=== PATIENT | male | born 1945 | race Caucasian/White ===

== ENCOUNTER 2020-04-17 15:57 | Inpatient (IN) ==
[2020-04-17] MEDS ORDERED: Naloxone 0.4 MG/ML INJ IVP PRN (18:20)
[2020-04-17] MEDS: Furosemide 20 MG/2 ML VIAL IVP ONE (18:46)
[2020-04-17 21:51] LABS: Hematocrit 23.6 % (37.5-50.1); Hemoglobin 7.3 g/dL (12.9-16.9)
[2020-04-17] MEDS ORDERED: Perflutren Lipid Microsphere 1.3 ML in 0.9 % Sodium Chloride 8.7 ML IVP PRN (21:58)
[2020-04-17] MEDS ORDERED: Furosemide 40 MG/4 ML VIAL IVP SCH (22:00)
[2020-04-17] MEDS ORDERED: Ipratropium/Albuterol Neb 3 ML IH PRN (22:53)
[2020-04-17] MEDS ORDERED: *HR* Metoprolol 5 MG/5 ML VIAL IVP ONE (23:51)
[2020-04-18] MEDS ORDERED: *HR* Metoprolol 5 MG/5 ML VIAL IVP ONE (01:48)
[2020-04-18] MEDS ORDERED: Furosemide 20 MG/2 ML VIAL IVP ONE (02:00)
[2020-04-18 03:36] LABS: Basophils % 0.1 %; Hematocrit 21.5 % (37.5-50.1); Hemoglobin 6.8 g/dL (12.9-16.9); Immature Granulocytes % 0.8 % (0-4); Lymphocytes # 0.8 K/mcL (0.6-4.6); Lymphocytes % 8.4 %; Mean Corpuscular HGB Conc 31.6 g/dL (31.6-35.5); Mean Corpuscular Hemoglobin 29.3 pg (28.0-33.3); Mean Corpuscular Volume 92.7 fL (83.0-100.0); Monocytes # 0.1 K/mcL (0.0-1.3); Monocytes % 0.7 %; Neutrophils # 8.8 K/mcL (1.6-8.9); Platelet Count 210 K/mcL (140-400); Red Blood Count 2.32 M/mcL (4.19-5.50); Red Cell Distribution Width 14.9 % (11.5-14.5); White Blood Count 9.8 K/mcL (4.3-11.1)
[2020-04-18 03:55] LABS: BUN/Creatinine Ratio 42 (6-26); Blood Urea Nitrogen 36 mg/dL (8-23); Calcium 8.3 mg/dL (8.6-10.3); Carbon Dioxide 20 mEq/L (23-29); Chloride 106 mEq/L (98-107); Glucose 140 mg/dL (70-105); Osmolality,Calculated 291 (280-300); Potassium 3.9 mEq/L (3.5-5.1); Sodium 135 mEq/L (136-145); eGFR For African Americans > 60 (> 60); eGFR For Non-African Americans > 60 (> 60)
[2020-04-18] MEDS ORDERED: 0.9 % Sodium Chloride 250 ML ONE (04:41)
[2020-04-18 05:28] LABS: Magnesium 1.9 mg/dL (1.6-2.6)
[2020-04-18] MEDS ORDERED: Pantoprazole 40 MG VIAL IVP SCH (06:00)
[2020-04-18] MEDS: Furosemide 20 MG/2 ML VIAL IVP ONE (07:43)
[2020-04-18] MEDS: Aspirin Enteric Coated 81 MG Tablet PO SCH (07:43)
[2020-04-18] MEDS: DilTIAZem CD (24hr) 240 MG CAP.ER.24H PO SCH (07:44)
[2020-04-18] MEDS ORDERED: 0.9 % Sodium Chloride 250 ML IVC SCH (08:15)
[2020-04-18] MEDS ORDERED: Pantoprazole 40 MG VIAL IVP ONE (08:23)
[2020-04-18] MEDS ORDERED: Octreotide 50 MCG/ML INJ IVP ONE (08:24)
[2020-04-18] MEDS ORDERED: Pantoprazole 40 MG in 0.9 % Sodium Chloride Mini Bag 100 ML IVC SCH (08:30)
[2020-04-18 09:14] LABS: Hemoglobin 7.3 g/dL (12.9-16.9)
[2020-04-18] MEDS: Octreotide 400 MCG in 0.9 % Sodium Chloride 100 ML IVC SCH ×2 (09:36→20:19)
[2020-04-18 11:33] LABS: Adenovirus Not Detected (Not Detect); Bordetella Pertussis Not Detected (Not Detect); Chlamydophila pneumoniae Not Detected (Not Detect); Coronavirus 229E Not Detected (Not Detect); Coronavirus HKU1 Not Detected (Not Detect); Coronavirus NL63 Not Detected (Not Detect); Coronavirus OC43 Not Detected (Not Detect); Human Metapneumovirus Not Detected (Not Detect); Human Rhinovirus/Enterovirus Not Detected (Not Detect); Influenza A Subtype 2009 H1 Not Detected (Not Detect); Influenza B Not Detected (Not Detect); Mycoplasma pneumoniae Not Detected (Not Detect); Parainfluenza Virus 1 Not Detected (Not Detect); Parainfluenza Virus 2 Not Detected (Not Detect); Parainfluenza Virus 3 Not Detected (Not Detect); Parainfluenza Virus 4 Not Detected (Not Detect); Respiratory Syncytial Virus Not Detected (Not Detect); SARS-CoV-2 Not Detected (Not Detect)
[2020-04-18] MEDS ORDERED: Furosemide 40 MG/4 ML VIAL IVP ONE (11:42)
[2020-04-18] MEDS ORDERED: *HR* Propofol 200 MG/20 ML VIAL IVP ONE ×2 (14:41→15:07)
[2020-04-18] MEDS ORDERED: Lidocaine -MPF 2% 2 ML VIAL ONE ×2 (14:42→15:10)
[2020-04-18] MEDS ORDERED: *HR* FentaNYL (PF) 100 MCG/2 ML VIAL ONE (14:59)
[2020-04-18] MEDS ORDERED: *HR* EPINEPHrine 1 MG/10 ML SYRINGE INTRATRACH PRN (15:27)
[2020-04-18 16:10] LABS: Hematocrit 27.2 % (37.5-50.1); Hemoglobin 8.5 g/dL (12.9-16.9)
[2020-04-18] MEDS: Pantoprazole 40 MG VIAL IVP SCH (17:06)
[2020-04-18] MEDS ORDERED: Ipratropium Neb 0.5 MG NEBULIZER IH PRN (18:30)
[2020-04-18] MEDS ORDERED: Levalbuterol Neb 0.63 MG/3 ML IH PRN (18:30)
[2020-04-19] MEDS: Octreotide 400 MCG in 0.9 % Sodium Chloride 100 ML IVC SCH (04:58)
[2020-04-19] MEDS: Pantoprazole 40 MG VIAL IVP SCH (05:29)
[2020-04-19 07:36] LABS: Basophils % 0.1 %; Hematocrit 25.1 % (37.5-50.1); Hemoglobin 7.8 g/dL (12.9-16.9); Immature Granulocytes % 0.6 % (0-4); Lymphocytes # 1.1 K/mcL (0.6-4.6); Lymphocytes % 8.5 %; Mean Corpuscular HGB Conc 31.1 g/dL (31.6-35.5); Mean Corpuscular Hemoglobin 29.3 pg (28.0-33.3); Mean Corpuscular Volume 94.4 fL (83.0-100.0); Mean Platelet Volume 10.5 fL (9.4-12.4); Monocytes # 0.7 K/mcL (0.0-1.3); Monocytes % 5.4 %; Neutrophils # 11.3 K/mcL (1.6-8.9); Platelet Count 215 K/mcL (140-400); Red Blood Count 2.66 M/mcL (4.19-5.50); Red Cell Distribution Width 16.1 % (11.5-14.5); Segmented Neutrophils % 85.4 %; White Blood Count 13.2 K/mcL (4.3-11.1)
[2020-04-19 07:42] LABS: BUN/Creatinine Ratio 40 (6-26); Blood Urea Nitrogen 45 mg/dL (8-23); Calcium 8.3 mg/dL (8.6-10.3); Carbon Dioxide 22 mEq/L (23-29); Chloride 106 mEq/L (98-107); Glucose 122 mg/dL (70-105); Magnesium 2.2 mg/dL (1.6-2.6); Osmolality,Calculated 299 (280-300); Potassium 4.1 mEq/L (3.5-5.1); Sodium 138 mEq/L (136-145); eGFR For African Americans > 60 (> 60); eGFR For Non-African Americans > 60 (> 60)
[2020-04-19 07:55] LABS: Thyroid Stimulating Hormone 0.308 mcIU/mL (0.340-5.600)
[2020-04-19] MEDS: DilTIAZem CD (24hr) 240 MG CAP.ER.24H PO SCH (09:14)
[2020-04-19] MEDS: Aspirin Enteric Coated 81 MG Tablet PO SCH (09:14)
[2020-04-19] MEDS: Pantoprazole 40 MG in 0.9 % Sodium Chloride Mini Bag 100 ML IVC SCH ×4 (09:15→22:59)
[2020-04-19] MEDS ORDERED: Nitroglycerin 0.4 MG TAB.SUBL SL PRN (18:03)
[2020-04-19] MEDS: Sucralfate 1 GM TABLET PO SCH (20:46)
[2020-04-20 01:49] LABS: Basophils % 0.3 %; Eosinophils % 0.4 %; Hematocrit 25.3 % (37.5-50.1); Hemoglobin 7.9 g/dL (12.9-16.9); Immature Granulocytes % 0.4 % (0-4); Lymphocytes # 1.5 K/mcL (0.6-4.6); Lymphocytes % 13.7 %; Mean Corpuscular HGB Conc 31.2 g/dL (31.6-35.5); Mean Corpuscular Hemoglobin 29.8 pg (28.0-33.3); Mean Corpuscular Volume 95.5 fL (83.0-100.0); Mean Platelet Volume 10.5 fL (9.4-12.4); Monocytes # 0.8 K/mcL (0.0-1.3); Monocytes % 7.3 %; Neutrophils # 8.8 K/mcL (1.6-8.9); Platelet Count 212 K/mcL (140-400); Red Blood Count 2.65 M/mcL (4.19-5.50); Red Cell Distribution Width 16.1 % (11.5-14.5); Segmented Neutrophils % 77.9 %; White Blood Count 11.3 K/mcL (4.3-11.1)
[2020-04-20 02:09] LABS: BUN/Creatinine Ratio 39 (6-26); Blood Urea Nitrogen 39 mg/dL (8-23); Calcium 8.1 mg/dL (8.6-10.3); Carbon Dioxide 25 mEq/L (23-29); Chloride 103 mEq/L (98-107); Glucose 98 mg/dL (70-105); Magnesium 2.3 mg/dL (1.6-2.6); Osmolality,Calculated 289 (280-300); Potassium 3.6 mEq/L (3.5-5.1); Sodium 135 mEq/L (136-145); eGFR For African Americans > 60 (> 60); eGFR For Non-African Americans > 60 (> 60)
[2020-04-20] MEDS: Pantoprazole 40 MG in 0.9 % Sodium Chloride Mini Bag 100 ML IVC SCH ×4 (04:14→20:17)
[2020-04-20] MEDS: Aspirin Enteric Coated 81 MG Tablet PO SCH (09:51)
[2020-04-20] MEDS: DilTIAZem CD (24hr) 240 MG CAP.ER.24H PO SCH (09:51)
[2020-04-20] MEDS: Sucralfate 1 GM TABLET PO SCH (20:17)
[2020-04-21] MEDS: Pantoprazole 40 MG in 0.9 % Sodium Chloride Mini Bag 100 ML IVC SCH ×5 (01:48→22:08)
[2020-04-21 06:39] LABS: Basophils % 0.3 %; Eosinophils # 0.1 K/mcL (0.0-0.6); Eosinophils % 1.7 %; Hematocrit 26.1 % (37.5-50.1); Hemoglobin 8.2 g/dL (12.9-16.9); Immature Granulocytes % 0.4 % (0-4); Lymphocytes # 1.2 K/mcL (0.6-4.6); Lymphocytes % 15.2 %; Mean Corpuscular HGB Conc 31.4 g/dL (31.6-35.5); Mean Corpuscular Hemoglobin 29.6 pg (28.0-33.3); Mean Corpuscular Volume 94.2 fL (83.0-100.0); Mean Platelet Volume 10.3 fL (9.4-12.4); Monocytes # 0.7 K/mcL (0.0-1.3); Neutrophils # 5.6 K/mcL (1.6-8.9); Platelet Count 196 K/mcL (140-400); Red Blood Count 2.77 M/mcL (4.19-5.50); Red Cell Distribution Width 16.2 % (11.5-14.5); Segmented Neutrophils % 73.4 %; White Blood Count 7.6 K/mcL (4.3-11.1)
[2020-04-21 06:53] LABS: BUN/Creatinine Ratio 29 (6-26); Blood Urea Nitrogen 23 mg/dL (8-23); Calcium 8.2 mg/dL (8.6-10.3); Carbon Dioxide 24 mEq/L (23-29); Chloride 103 mEq/L (98-107); Glucose 107 mg/dL (70-105); Magnesium 2.2 mg/dL (1.6-2.6); Osmolality,Calculated 280 (280-300); Potassium 3.4 mEq/L (3.5-5.1); Sodium 133 mEq/L (136-145); eGFR For African Americans > 60 (> 60); eGFR For Non-African Americans > 60 (> 60)
[2020-04-21] MEDS: DilTIAZem CD (24hr) 240 MG CAP.ER.24H PO SCH (08:00)
[2020-04-21] MEDS: Aspirin Enteric Coated 81 MG Tablet PO SCH (08:01)
[2020-04-21] MEDS ORDERED: Furosemide 40 MG/4 ML VIAL IVP SCH (09:00)
[2020-04-21] MEDS: Sucralfate 1 GM TABLET PO SCH (22:08)
[2020-04-22] MEDS: Pantoprazole 40 MG in 0.9 % Sodium Chloride Mini Bag 100 ML IVC SCH (03:45)
[2020-04-22 06:04] LABS: Basophils % 0.2 %; Eosinophils # 0.2 K/mcL (0.0-0.6); Eosinophils % 2.1 %; Hematocrit 26.2 % (37.5-50.1); Hemoglobin 8.1 g/dL (12.9-16.9); Immature Granulocytes % 0.7 % (0-4); Lymphocytes # 1.3 K/mcL (0.6-4.6); Mean Corpuscular HGB Conc 30.9 g/dL (31.6-35.5); Mean Corpuscular Hemoglobin 29.3 pg (28.0-33.3); Mean Corpuscular Volume 94.9 fL (83.0-100.0); Mean Platelet Volume 10.2 fL (9.4-12.4); Monocytes # 0.8 K/mcL (0.0-1.3); Monocytes % 9.5 %; Neutrophils # 6.1 K/mcL (1.6-8.9); Platelet Count 224 K/mcL (140-400); Red Blood Count 2.76 M/mcL (4.19-5.50); Red Cell Distribution Width 16.4 % (11.5-14.5); Segmented Neutrophils % 72.5 %; White Blood Count 8.4 K/mcL (4.3-11.1)
[2020-04-22 06:26] LABS: BUN/Creatinine Ratio 22 (6-26); Blood Urea Nitrogen 18 mg/dL (8-23); Calcium 8.4 mg/dL (8.6-10.3); Carbon Dioxide 26 mEq/L (23-29); Chloride 100 mEq/L (98-107); Glucose 101 mg/dL (70-105); Magnesium 2.1 mg/dL (1.6-2.6); Osmolality,Calculated 276 (280-300); Potassium 3.2 mEq/L (3.5-5.1); Sodium 132 mEq/L (136-145); eGFR For African Americans > 60 (> 60); eGFR For Non-African Americans > 60 (> 60)
[2020-04-22] MEDS: Aspirin Enteric Coated 81 MG Tablet PO SCH (08:29)
[2020-04-22] MEDS: DilTIAZem CD (24hr) 240 MG CAP.ER.24H PO SCH (08:29)
[2020-04-22] MEDS: Sucralfate 1 GM TABLET PO SCH (20:40)
[2020-04-23 06:33] LABS: BUN/Creatinine Ratio 26 (6-26); Blood Urea Nitrogen 20 mg/dL (8-23); Calcium 8.4 mg/dL (8.6-10.3); Carbon Dioxide 23 mEq/L (23-29); Chloride 103 mEq/L (98-107); Glucose 96 mg/dL (70-105); Osmolality,Calculated 276 (280-300); Potassium 3.7 mEq/L (3.5-5.1); Sodium 132 mEq/L (136-145); eGFR For African Americans > 60 (> 60); eGFR For Non-African Americans > 60 (> 60)
[2020-04-23] MEDS: Aspirin Enteric Coated 81 MG Tablet PO SCH (08:40)
[2020-04-23] MEDS: DilTIAZem CD (24hr) 240 MG CAP.ER.24H PO SCH (08:40)
[2020-04-23 09:52] LABS: Basophils % 0.1 %; Eosinophils # 0.2 K/mcL (0.0-0.6); Eosinophils % 1.9 %; Hematocrit 27.6 % (37.5-50.1); Hemoglobin 8.4 g/dL (12.9-16.9); Immature Granulocytes % 0.6 % (0-4); Lymphocytes # 1.1 K/mcL (0.6-4.6); Lymphocytes % 13.2 %; Mean Corpuscular HGB Conc 30.4 g/dL (31.6-35.5); Mean Corpuscular Volume 95.2 fL (83.0-100.0); Mean Platelet Volume 10.1 fL (9.4-12.4); Monocytes # 0.8 K/mcL (0.0-1.3); Monocytes % 9.6 %; Neutrophils # 6.3 K/mcL (1.6-8.9); Platelet Count 213 K/mcL (140-400); Red Cell Distribution Width 16.1 % (11.5-14.5); Segmented Neutrophils % 74.6 %; White Blood Count 8.5 K/mcL (4.3-11.1)
[2020-04-23 17:50] LABS: Adenovirus Not Detected (Not Detect); Bordetella Pertussis Not Detected (Not Detect); Chlamydophila pneumoniae Not Detected (Not Detect); Coronavirus 229E Not Detected (Not Detect); Coronavirus HKU1 Not Detected (Not Detect); Coronavirus NL63 Not Detected (Not Detect); Coronavirus OC43 Not Detected (Not Detect); Human Metapneumovirus Not Detected (Not Detect); Human Rhinovirus/Enterovirus Not Detected (Not Detect); Influenza A Subtype 2009 H1 Not Detected (Not Detect); Influenza B Not Detected (Not Detect); Mycoplasma pneumoniae Not Detected (Not Detect); Parainfluenza Virus 1 Not Detected (Not Detect); Parainfluenza Virus 2 Not Detected (Not Detect); Parainfluenza Virus 3 Not Detected (Not Detect); Parainfluenza Virus 4 Not Detected (Not Detect); Respiratory Syncytial Virus Not Detected (Not Detect); SARS-CoV-2 Not Detected (Not Detect)
[2020-04-23] MEDS: Sucralfate 1 GM TABLET PO SCH (19:55)
[2020-04-24 05:31] LABS: Basophils % 0.1 %; Eosinophils # 0.2 K/mcL (0.0-0.6); Eosinophils % 2.1 %; Hematocrit 24.3 % (37.5-50.1); Hemoglobin 7.6 g/dL (12.9-16.9); Immature Granulocytes % 0.5 % (0-4); Lymphocytes # 1.3 K/mcL (0.6-4.6); Lymphocytes % 15.3 %; Mean Corpuscular HGB Conc 31.3 g/dL (31.6-35.5); Mean Corpuscular Hemoglobin 29.1 pg (28.0-33.3); Mean Corpuscular Volume 93.1 fL (83.0-100.0); Mean Platelet Volume 10.2 fL (9.4-12.4); Monocytes # 0.9 K/mcL (0.0-1.3); Monocytes % 9.9 %; Neutrophils # 6.2 K/mcL (1.6-8.9); Platelet Count 236 K/mcL (140-400); Red Blood Count 2.61 M/mcL (4.19-5.50); Red Cell Distribution Width 15.9 % (11.5-14.5); Segmented Neutrophils % 72.1 %; White Blood Count 8.6 K/mcL (4.3-11.1)
[2020-04-24 05:51] LABS: Blood Urea Nitrogen < 2 mg/dL (8-23); Calcium 8.6 mg/dL (8.6-10.3); Carbon Dioxide 24 mEq/L (23-29); Chloride 104 mEq/L (98-107); Glucose 94 mg/dL (70-105); Potassium 3.6 mEq/L (3.5-5.1); Sodium 134 mEq/L (136-145); eGFR For African Americans > 60 (> 60); eGFR For Non-African Americans > 60 (> 60)
[2020-04-24 06:43] VITALS: BP 120/74
[2020-04-24] MEDS: DilTIAZem CD (24hr) 240 MG CAP.ER.24H PO SCH (08:32)
[2020-04-24] MEDS: Aspirin Enteric Coated 81 MG Tablet PO SCH (08:32)
== END 2020-04-24 10:29 | DRG 380 ==
LOC: 3ANU → SUATTDRO 17:59
PROVIDERS: ADMIT Internal Medicine; ATTEND Pharmacist

== ENCOUNTER 2020-06-29 05:21 | Inpatient (IN) ==
[2020-06-29] MEDS ORDERED: Naloxone 0.4 MG/ML INJ IVP PRN (10:07)
[2020-06-29] MEDS ORDERED: Sennosides/Docusate Sodium TABLET PO PRN (10:08)
[2020-06-29 10:45] LABS: ABG Base Excess 3 mEq/L (-2 to 3); ABG HCO3 27 mEq/L (21-27); ABG Oxygen Saturation 92 % (95-98); ABG PCO2 41 mmHg (35-45); ABG PH 7.44 pH Units (7.32-7.45); ABG PO2 61 mmHg (85-104); ABG TCO2 29 mEq/L (20-26)
[2020-06-29] MEDS ORDERED: cefTRIAXone 2,000 MG in Water for inj. (sterile) 20 ML IVP SCH (11:00)
[2020-06-29] MEDS ORDERED: Azithromycin 500 MG in 0.9 % Sodium Chloride 250 ML IVPB SCH (11:00)
[2020-06-29 11:06] LABS: Calcium 9.4 mg/dL (8.6-10.3); Potassium 4.4 mEq/L (3.5-5.1)
[2020-06-29] MEDS ORDERED: *HR* Dextrose 50 % in Water (Vial) 50 ML VIAL IVP PRN (11:08)
[2020-06-29] MEDS ORDERED: Dextrose Gel 15 GM/37.5 ML TUBE PO PRN ×2 (11:08)
[2020-06-29] MEDS ORDERED: D5% in Water 1,000 ML IVC PRN (11:08)
[2020-06-29 11:53] LABS: Albumin 3.7 g/dL (3.5-5.7); Albumin/Globulin Ratio 1.2 (1.1-2.2); Bilirubin,Direct 0.3 mg/dL (0.0-0.2); Bilirubin,Indirect 0.8 mg/dL (0.0-1.0); Bilirubin,Total 1.1 mg/dL (0.3-1.0); Total Protein 6.7 g/dL (6.4-8.9)
[2020-06-29] MEDS: Ipratropium 1 PUFF INHALER IH SCH ×2 (15:13→20:39)
[2020-06-29 16:33] LABS: INR 1.5; Prothrombin Time 16.8 Seconds (9.4-12.1)
[2020-06-29] MEDS: *HR* Heparin 5,000 UNIT/ML VIAL SQ SCH ×2 (16:39→21:41)
[2020-06-29] MEDS: Piperacillin/Tazobactam 3.375 GM in 0.9 % Sodium Chloride Mini Bag 100 ML IVPB SCH (16:39)
[2020-06-29] MEDS: DilTIAZem CD (24hr) 240 MG CAP.ER.24H PO SCH (16:41)
[2020-06-29 17:28] LABS: Adenovirus Not Detected (Not Detect); Bordetella Pertussis Not Detected (Not Detect); Chlamydophila pneumoniae Not Detected (Not Detect); Coronavirus 229E Not Detected (Not Detect); Coronavirus HKU1 Not Detected (Not Detect); Coronavirus NL63 Not Detected (Not Detect); Coronavirus OC43 Not Detected (Not Detect); Human Metapneumovirus Not Detected (Not Detect); Human Rhinovirus/Enterovirus Not Detected (Not Detect); Influenza A Subtype 2009 H1 Not Detected (Not Detect); Influenza B Not Detected (Not Detect); Mycoplasma pneumoniae Not Detected (Not Detect); Parainfluenza Virus 1 Not Detected (Not Detect); Parainfluenza Virus 2 Not Detected (Not Detect); Parainfluenza Virus 3 Not Detected (Not Detect); Parainfluenza Virus 4 Not Detected (Not Detect); Respiratory Syncytial Virus Not Detected (Not Detect); SARS-CoV-2 Not Detected (Not Detect)
[2020-06-29] MEDS: Sucralfate 1 GM TABLET PO SCH (18:04)
[2020-06-29] MEDS: Doxycycline 100 MG in 0.9 % Sodium Chloride Mini Bag 100 ML IVPB SCH (18:04)
[2020-06-29] MEDS ORDERED: Vancomycin 1 EACH in 0.9 % Sodium Chloride 250 ML IVPB PRN (19:00)
[2020-06-29] MEDS ORDERED: Vancomycin 1,750 MG/517.5 ML IV.SOLN IVPB ONE (19:06)
[2020-06-29 22:21] LABS: Protein/Creatinine Ratio,Urine 0.22 mg/mg (0.00-0.20); Sodium, Urine 78.8 mEq/L
[2020-06-30] MEDS ORDERED: *HR* LORazepam 2 MG/ML VIAL IVP PRN (00:43)
[2020-06-30] MEDS ORDERED: *HR* LORazepam 2 MG/ML VIAL IVP STA (00:56)
[2020-06-30] MEDS: Piperacillin/Tazobactam 3.375 GM in 0.9 % Sodium Chloride Mini Bag 100 ML IVPB SCH ×4 (01:17→22:32)
[2020-06-30] MEDS: Ipratropium 1 PUFF INHALER IH SCH ×4 (03:58→21:09)
[2020-06-30] MEDS: *HR* Heparin 5,000 UNIT/ML VIAL SQ SCH ×3 (06:29→20:24)
[2020-06-30] MEDS: Doxycycline 100 MG in 0.9 % Sodium Chloride Mini Bag 100 ML IVPB SCH ×2 (06:29→18:45)
[2020-06-30] MEDS: Sucralfate 1 GM TABLET PO SCH ×2 (08:56→16:31)
[2020-06-30] MEDS: DilTIAZem CD (24hr) 240 MG CAP.ER.24H PO SCH (08:56)
[2020-06-30 08:58] LABS: Hematocrit 37.7 % (37.5-50.1); Hemoglobin 11.5 g/dL (12.9-16.9); Mean Corpuscular HGB Conc 30.5 g/dL (31.6-35.5); Mean Corpuscular Hemoglobin 25.1 pg (28.0-33.3); Mean Corpuscular Volume 82.3 fL (83.0-100.0); Mean Platelet Volume 10.1 fL (9.4-12.4); Platelet Count 220 K/mcL (140-400); Red Blood Count 4.58 M/mcL (4.19-5.50); Red Cell Distribution Width 17.3 % (11.5-14.5); White Blood Count 7.5 K/mcL (4.3-11.1)
[2020-06-30 09:17] LABS: Albumin 3.8 g/dL (3.5-5.7); Albumin/Globulin Ratio 1.2 (1.1-2.2); Bilirubin,Direct 0.4 mg/dL (0.0-0.2); Bilirubin,Indirect 0.6 mg/dL (0.0-1.0); Calcium 9.3 mg/dL (8.6-10.3); Globulin 3.1 g/dL (2.4-3.5); Potassium 4.8 mEq/L (3.5-5.1); Total Protein 6.9 g/dL (6.4-8.9)
[2020-06-30 09:18] LABS: Magnesium 2.2 mg/dL (1.6-2.6); Phosphorous 4.3 mg/dL (2.7-4.5)
[2020-06-30 09:40] LABS: Hepatitis B Surface Antigen Nonreactive (Nonreactive)
[2020-06-30 09:53] LABS: Bacteria,Urine Few per hpf (None-Few); Bilirubin,Urine Negative (Negative); Blood,Urine Large (Negative); Clarity,Urine Ex.Turbid (Clear); Color,Urine Yellow (Yellow); Glucose,Urine (UA) Normal (Normal); Ketones,Urine Negative (Negative); Leukocyte Esterase,Urine Negative (Negative); Mucus,Urine Few per lpf (None-Few); Nitrite,Urine Negative (Negative); PH,Urine 5.5 pH Units (5.0-8.0); Protein,Urine 50 mg/dL (Neg-Trace); RBC,Urine TNTC per hpf (0-3); Specific Gravity,Urine 1.021 (1.010-1.025); Squamous Epithelial Cell,Urine Few per hpf (None-Few); Urobilinogen,Urine Normal (Normal); WBC,Urine 50-100 per hpf (0-3)
[2020-06-30] MEDS ORDERED: Vancomycin 1,750 MG/517.5 ML IV.SOLN IVPB ONE (10:00)
[2020-06-30 10:09] LABS: Hepatitis C Virus Antibody Nonreactive (Nonreactive)
[2020-06-30 10:11] LABS: Hepatitis A Antibody IgM Nonreactive (Nonreactive); Hepatitis B Core IgM Nonreactive (Nonreactive)
[2020-06-30 14:20] LABS: Folate 15.7 ng/mL (3.0-16.0)
[2020-06-30] MEDS ORDERED: Furosemide 40 MG/4 ML VIAL IVP ONE (19:24)
[2020-06-30] MEDS: Lactulose Oral Soln 20 GM/30 ML UDC PO SCH (20:24)
[2020-07-01 01:59] LABS: Hematocrit 36.4 % (37.5-50.1); Hemoglobin 11.2 g/dL (12.9-16.9); Immature Granulocytes % 0.4 % (0-4); Lymphocytes # 0.3 K/mcL (0.6-4.6); Lymphocytes % 3.7 %; Mean Corpuscular HGB Conc 30.8 g/dL (31.6-35.5); Mean Corpuscular Hemoglobin 25.1 pg (28.0-33.3); Mean Corpuscular Volume 81.6 fL (83.0-100.0); Mean Platelet Volume 9.9 fL (9.4-12.4); Monocytes # 0.4 K/mcL (0.0-1.3); Monocytes % 5.4 %; Neutrophils # 6.6 K/mcL (1.6-8.9); Platelet Count 247 K/mcL (140-400); Red Blood Count 4.46 M/mcL (4.19-5.50); Red Cell Distribution Width 17.3 % (11.5-14.5); Segmented Neutrophils % 90.5 %; White Blood Count 7.3 K/mcL (4.3-11.1)
[2020-07-01 02:22] LABS: Calcium 9.2 mg/dL (8.6-10.3); Potassium 4.5 mEq/L (3.5-5.1)
[2020-07-01] MEDS: Ipratropium 1 PUFF INHALER IH SCH ×4 (03:05→22:06)
[2020-07-01 03:21] LABS: Hepatitis B Surface Antigen Nonreactive (Nonreactive)
[2020-07-01 03:52] LABS: Hepatitis B Core IgM Nonreactive (Nonreactive)
[2020-07-01 03:53] LABS: Hepatitis A Antibody IgM Nonreactive (Nonreactive); Hepatitis C Virus Antibody Nonreactive (Nonreactive)
[2020-07-01] MEDS: Piperacillin/Tazobactam 3.375 GM in 0.9 % Sodium Chloride Mini Bag 100 ML IVPB SCH ×3 (05:45→23:34)
[2020-07-01] MEDS: *HR* Heparin 5,000 UNIT/ML VIAL SQ SCH ×2 (05:46→14:01)
[2020-07-01] MEDS: Doxycycline 100 MG in 0.9 % Sodium Chloride Mini Bag 100 ML IVPB SCH ×2 (05:46→16:52)
[2020-07-01] MEDS ORDERED: Nitroglycerin 0.4 MG TAB.SUBL SL PRN (07:27)
[2020-07-01] MEDS: DilTIAZem CD (24hr) 240 MG CAP.ER.24H PO SCH (07:48)
[2020-07-01] MEDS: Sucralfate 1 GM TABLET PO SCH ×2 (07:49→16:42)
[2020-07-01] MEDS: Lactulose Oral Soln 20 GM/30 ML UDC PO SCH ×2 (07:49→20:35)
[2020-07-01] MEDS: ' PO SCH (07:49)
[2020-07-01] MEDS: Aspirin Enteric Coated 81 MG Tablet PO SCH (08:08)
[2020-07-01] MEDS: Ipratropium/Albuterol Neb 3 ML IH SCH ×3 (10:46→22:07)
[2020-07-01] MEDS ORDERED: *HR* Metoprolol 5 MG/5 ML VIAL IVP ONE (11:49)
[2020-07-01] MEDS: Vancomycin 1,500 MG/265 ML IV.SOLN IVPB SCH (11:53)
[2020-07-01] MEDS ORDERED: *HR* Heparin 5,000 UNIT/ML VIAL IVP ONE (13:18)
[2020-07-01] MEDS ORDERED: *HR* Heparin 5,000 UNIT/ML VIAL IVP PRN ×2 (13:18)
[2020-07-01] MEDS: Heparin 25,000UNIT/250ML 1/2NS 25,000 UNIT/250 ML IV.SOLN IVC SCH (13:58)
[2020-07-01 14:13] LABS: Magnesium 2.3 mg/dL (1.6-2.6)
[2020-07-01 14:26] LABS: Hematocrit 37.5 % (37.5-50.1); Hemoglobin 11.6 g/dL (12.9-16.9); Mean Corpuscular HGB Conc 30.9 g/dL (31.6-35.5); Mean Corpuscular Hemoglobin 25.8 pg (28.0-33.3); Mean Corpuscular Volume 83.5 fL (83.0-100.0); Mean Platelet Volume 9.6 fL (9.4-12.4); Platelet Count 241 K/mcL (140-400); Red Blood Count 4.49 M/mcL (4.19-5.50); Red Cell Distribution Width 17.6 % (11.5-14.5); White Blood Count 9.1 K/mcL (4.3-11.1)
[2020-07-01 14:40] LABS: Heparin anti-factor XA UFH < 0.04 IU/mL (0.30-0.70); INR 1.3; Prothrombin Time 14.9 Seconds (9.4-12.1)
[2020-07-01] MEDS ORDERED: MOM Conc 10 ML UD.LIQ PO PRN (16:12)
[2020-07-01] MEDS: hydrOXYzine pamoate 25 MG CAPSULE PO PRN (16:42)
[2020-07-01] MEDS: Furosemide 20 MG/2 ML VIAL IVP SCH (16:42)
[2020-07-01] MEDS ORDERED: Furosemide 20 MG/2 ML VIAL IVP SCH (17:00)
[2020-07-01] MEDS: Haloperidol Lactate 5 MG/ML VIAL IM PRN (23:34)
[2020-07-02] MEDS: Ipratropium 1 PUFF INHALER IH SCH ×3 (04:13→14:49)
[2020-07-02] MEDS: Ipratropium/Albuterol Neb 3 ML IH SCH ×4 (04:15→21:31)
[2020-07-02 04:44] LABS: Hemoglobin 11.9 g/dL (12.9-16.9); Lymphocytes # 0.4 K/mcL (0.6-4.6); Lymphocytes % 3.7 %; Mean Corpuscular HGB Conc 30.5 g/dL (31.6-35.5); Mean Corpuscular Hemoglobin 25.2 pg (28.0-33.3); Mean Corpuscular Volume 82.5 fL (83.0-100.0); Mean Platelet Volume 9.7 fL (9.4-12.4); Monocytes # 0.7 K/mcL (0.0-1.3); Monocytes % 5.9 %; Neutrophils # 10.5 K/mcL (1.6-8.9); Nucleated Red Blood Cells 0.3 /100 WBC (0); Platelet Count 257 K/mcL (140-400); Red Blood Count 4.73 M/mcL (4.19-5.50); Red Cell Distribution Width 17.6 % (11.5-14.5); Segmented Neutrophils % 89.4 %; White Blood Count 11.7 K/mcL (4.3-11.1)
[2020-07-02 05:05] LABS: Calcium 9.4 mg/dL (8.6-10.3); Potassium 4.4 mEq/L (3.5-5.1)
[2020-07-02] MEDS: Doxycycline 100 MG in 0.9 % Sodium Chloride Mini Bag 100 ML IVPB SCH (05:32)
[2020-07-02] MEDS: hydrOXYzine pamoate 25 MG CAPSULE PO PRN ×2 (05:33→21:31)
[2020-07-02] MEDS: Piperacillin/Tazobactam 3.375 GM in 0.9 % Sodium Chloride Mini Bag 100 ML IVPB SCH ×3 (09:17→22:28)
[2020-07-02] MEDS: ' PO SCH (09:18)
[2020-07-02] MEDS: Aspirin Enteric Coated 81 MG Tablet PO SCH (09:18)
[2020-07-02] MEDS: Lactulose Oral Soln 20 GM/30 ML UDC PO SCH ×2 (09:18→20:00)
[2020-07-02] MEDS: DilTIAZem CD (24hr) 240 MG CAP.ER.24H PO SCH (09:19)
[2020-07-02] MEDS: Sucralfate 1 GM TABLET PO SCH ×2 (09:19→15:47)
[2020-07-02] MEDS: Furosemide 20 MG/2 ML VIAL IVP SCH (09:20)
[2020-07-02] MEDS: Heparin 25,000UNIT/250ML 1/2NS 25,000 UNIT/250 ML IV.SOLN IVC SCH (11:09)
[2020-07-02] MEDS: Vancomycin 1,500 MG/265 ML IV.SOLN IVPB SCH (12:15)
[2020-07-02] MEDS: Furosemide 20 MG TABLET PO SCH (16:57)
[2020-07-02] MEDS: Doxycycline 100 MG CAPSULE PO SCH (16:57)
[2020-07-02] MEDS ORDERED: Furosemide 40 MG/4 ML VIAL IVP STA (17:05)
[2020-07-02] MEDS: Furosemide 40 MG/4 ML VIAL IVP SCH (20:00)
[2020-07-02] MEDS: Metoprolol XL (24 HR) Succ 50 MG TAB.ER.24H PO SCH (20:01)
[2020-07-03] MEDS: Ipratropium/Albuterol Neb 3 ML IH SCH ×4 (03:39→21:46)
[2020-07-03 05:48] LABS: Hematocrit 38.3 % (37.5-50.1); Hemoglobin 11.9 g/dL (12.9-16.9); Immature Granulocytes % 0.4 % (0-4); Lymphocytes # 0.4 K/mcL (0.6-4.6); Lymphocytes % 5.6 %; Mean Corpuscular HGB Conc 31.1 g/dL (31.6-35.5); Mean Corpuscular Hemoglobin 25.9 pg (28.0-33.3); Mean Corpuscular Volume 83.3 fL (83.0-100.0); Mean Platelet Volume 10.1 fL (9.4-12.4); Monocytes # 0.5 K/mcL (0.0-1.3); Neutrophils # 6.3 K/mcL (1.6-8.9); Nucleated Red Blood Cells 0.3 /100 WBC (0); Platelet Count 223 K/mcL (140-400); Red Cell Distribution Width 17.6 % (11.5-14.5); White Blood Count 7.2 K/mcL (4.3-11.1)
[2020-07-03] MEDS: Heparin 25,000UNIT/250ML 1/2NS 25,000 UNIT/250 ML IV.SOLN IVC SCH ×2 (05:55→23:24)
[2020-07-03] MEDS: ' PO SCH (05:55)
[2020-07-03] MEDS: Doxycycline 100 MG CAPSULE PO SCH ×2 (05:55→17:00)
[2020-07-03] MEDS: Piperacillin/Tazobactam 3.375 GM in 0.9 % Sodium Chloride Mini Bag 100 ML IVPB SCH ×3 (05:56→22:03)
[2020-07-03 06:08] LABS: Albumin 3.9 g/dL (3.5-5.7); Albumin/Globulin Ratio 1.3 (1.1-2.2); Bilirubin,Direct 0.5 mg/dL (0.0-0.2); Bilirubin,Indirect 0.6 mg/dL (0.0-1.0); Bilirubin,Total 1.1 mg/dL (0.3-1.0); Globulin 3.1 g/dL (2.4-3.5)
[2020-07-03 06:10] LABS: Calcium 9.4 mg/dL (8.6-10.3); Potassium 4.1 mEq/L (3.5-5.1)
[2020-07-03 09:44] LABS: ANA IgG by ELISA DETECTED (None Detected)
[2020-07-03] MEDS: Aspirin Enteric Coated 81 MG Tablet PO SCH (10:01)
[2020-07-03] MEDS: Sucralfate 1 GM TABLET PO SCH ×2 (10:01→16:59)
[2020-07-03] MEDS: DilTIAZem CD (24hr) 240 MG CAP.ER.24H PO SCH (10:01)
[2020-07-03] MEDS: Furosemide 20 MG TABLET PO SCH (10:01)
[2020-07-03] MEDS: Lactulose Oral Soln 20 GM/30 ML UDC PO SCH ×2 (10:03→23:23)
[2020-07-03] MEDS: Furosemide 40 MG/4 ML VIAL IVP SCH ×2 (10:03→19:57)
[2020-07-03] MEDS: Metoprolol XL (24 HR) Succ 50 MG TAB.ER.24H PO SCH ×2 (10:17→19:56)
[2020-07-03] MEDS ORDERED: Vancomycin 1,500 MG/265 ML IV.SOLN IVPB SCH (13:00)
[2020-07-03] MEDS: hydrOXYzine pamoate 25 MG CAPSULE PO PRN (17:07)
[2020-07-03] MEDS: *HR* Metoprolol 5 MG/5 ML VIAL IVP PRN (17:08)
[2020-07-03 23:52] LABS: ANA HEp-2 IgG IFA <1:80 (<1:80)
[2020-07-04] MEDS: Heparin 25,000UNIT/250ML 1/2NS 25,000 UNIT/250 ML IV.SOLN IVC SCH (01:58)
[2020-07-04] MEDS: Ipratropium/Albuterol Neb 3 ML IH SCH ×4 (03:55→22:44)
[2020-07-04 05:27] LABS: Hematocrit 38.5 % (37.5-50.1); Hemoglobin 11.8 g/dL (12.9-16.9); Immature Granulocytes % 0.3 % (0-4); Lymphocytes # 0.3 K/mcL (0.6-4.6); Lymphocytes % 4.6 %; Mean Corpuscular HGB Conc 30.6 g/dL (31.6-35.5); Mean Corpuscular Hemoglobin 25.7 pg (28.0-33.3); Mean Corpuscular Volume 83.7 fL (83.0-100.0); Mean Platelet Volume 10.3 fL (9.4-12.4); Monocytes # 0.4 K/mcL (0.0-1.3); Monocytes % 5.2 %; Neutrophils # 6.4 K/mcL (1.6-8.9); Platelet Count 198 K/mcL (140-400); Red Cell Distribution Width 17.8 % (11.5-14.5); Segmented Neutrophils % 89.9 %; White Blood Count 7.2 K/mcL (4.3-11.1)
[2020-07-04 05:42] LABS: Calcium 9.3 mg/dL (8.6-10.3); Potassium 4.1 mEq/L (3.5-5.1)
[2020-07-04] MEDS: hydrOXYzine pamoate 25 MG CAPSULE PO PRN ×2 (05:42→20:47)
[2020-07-04] MEDS: Doxycycline 100 MG CAPSULE PO SCH (05:42)
[2020-07-04] MEDS: Piperacillin/Tazobactam 3.375 GM in 0.9 % Sodium Chloride Mini Bag 100 ML IVPB SCH (05:42)
[2020-07-04] MEDS: ' PO SCH (05:42)
[2020-07-04] MEDS: DilTIAZem CD (24hr) 240 MG CAP.ER.24H PO SCH (07:49)
[2020-07-04] MEDS: Aspirin Enteric Coated 81 MG Tablet PO SCH (07:49)
[2020-07-04] MEDS: Sucralfate 1 GM TABLET PO SCH ×2 (07:50→15:07)
[2020-07-04] MEDS: Metoprolol XL (24 HR) Succ 50 MG TAB.ER.24H PO SCH ×2 (07:50→20:47)
[2020-07-04] MEDS: Lactulose Oral Soln 20 GM/30 ML UDC PO SCH ×2 (07:50→20:47)
[2020-07-04] MEDS: Furosemide 40 MG/4 ML VIAL IVP SCH ×2 (07:51→20:47)
[2020-07-04] MEDS: Apixaban 5 MG TABLET PO SCH ×2 (11:18→20:47)
[2020-07-04] MEDS: Haloperidol Lactate 5 MG/ML VIAL IM PRN (15:07)
[2020-07-05 01:33] LABS: Hematocrit 41.7 % (37.5-50.1); Hemoglobin 12.4 g/dL (12.9-16.9); Mean Corpuscular HGB Conc 29.7 g/dL (31.6-35.5); Mean Corpuscular Hemoglobin 25.2 pg (28.0-33.3); Mean Corpuscular Volume 84.8 fL (83.0-100.0); Mean Platelet Volume 10.3 fL (9.4-12.4); Platelet Count 232 K/mcL (140-400); Red Blood Count 4.92 M/mcL (4.19-5.50); Red Cell Distribution Width 18.3 % (11.5-14.5); White Blood Count 10.3 K/mcL (4.3-11.1)
[2020-07-05 01:50] LABS: Calcium 9.8 mg/dL (8.6-10.3); Magnesium 2.6 mg/dL (1.6-2.6); Potassium 4.4 mEq/L (3.5-5.1)
[2020-07-05] MEDS: Ipratropium/Albuterol Neb 3 ML IH SCH ×4 (04:12→21:19)
[2020-07-05] MEDS: Sucralfate 1 GM TABLET PO SCH ×2 (07:41→16:10)
[2020-07-05] MEDS: ' PO SCH (07:41)
[2020-07-05] MEDS: Apixaban 5 MG TABLET PO SCH ×2 (09:49→20:05)
[2020-07-05] MEDS: Metoprolol XL (24 HR) Succ 50 MG TAB.ER.24H PO SCH ×2 (09:49→20:05)
[2020-07-05] MEDS: DilTIAZem CD (24hr) 240 MG CAP.ER.24H PO SCH (09:49)
[2020-07-05] MEDS: Lactulose Oral Soln 20 GM/30 ML UDC PO SCH ×2 (09:50→20:04)
[2020-07-05] MEDS: Furosemide 40 MG/4 ML VIAL IVP SCH ×2 (09:50→20:04)
[2020-07-05] MEDS: Aspirin Enteric Coated 81 MG Tablet PO SCH (09:50)
[2020-07-05] MEDS: Haloperidol Lactate 5 MG/ML VIAL IM PRN ×2 (12:26→22:30)
[2020-07-05] MEDS: *HR* Metoprolol 5 MG/5 ML VIAL IVP PRN (16:23)
[2020-07-06 03:22] LABS: BUN/Creatinine Ratio 47 (6-26); Blood Urea Nitrogen 59 mg/dL (8-23); Calcium 9.9 mg/dL (8.6-10.3); Carbon Dioxide 29 mEq/L (23-29); Chloride 107 mEq/L (98-107); Glucose 119 mg/dL (70-105); Osmolality,Calculated 316 (280-300); Potassium 4.8 mEq/L (3.5-5.1); Sodium 144 mEq/L (136-145); eGFR For African Americans > 60 (> 60); eGFR For Non-African Americans 56 (> 60)
[2020-07-06] MEDS: Ipratropium/Albuterol Neb 3 ML IH SCH ×4 (04:01→22:59)
[2020-07-06] MEDS: ' PO SCH (05:20)
[2020-07-06] MEDS: Metoprolol XL (24 HR) Succ 50 MG TAB.ER.24H PO SCH ×2 (07:47→20:25)
[2020-07-06] MEDS: Aspirin Enteric Coated 81 MG Tablet PO SCH (07:47)
[2020-07-06] MEDS: DilTIAZem CD (24hr) 240 MG CAP.ER.24H PO SCH (07:47)
[2020-07-06] MEDS: Sucralfate 1 GM TABLET PO SCH ×2 (07:48→16:08)
[2020-07-06] MEDS: Lactulose Oral Soln 20 GM/30 ML UDC PO SCH ×2 (07:48→20:25)
[2020-07-06] MEDS: Furosemide 40 MG/4 ML VIAL IVP SCH (07:48)
[2020-07-06] MEDS: Apixaban 5 MG TABLET PO SCH ×2 (07:48→20:25)
[2020-07-06 08:32] LABS: Basophils % 0.1 %; Immature Granulocytes % 0.4 % (0-4); Red Cell Distribution Width 18.6 % (11.5-14.5)
[2020-07-06 08:33] LABS: Hemoglobin 13.1 g/dL (12.9-16.9); Lymphocytes # 0.6 K/mcL (0.6-4.6); Mean Corpuscular HGB Conc 29.1 g/dL (31.6-35.5); Mean Corpuscular Hemoglobin 25.3 pg (28.0-33.3); Mean Corpuscular Volume 86.9 fL (83.0-100.0); Mean Platelet Volume 10.4 fL (9.4-12.4); Monocytes # 0.9 K/mcL (0.0-1.3); Monocytes % 7.3 %; Neutrophils # 10.6 K/mcL (1.6-8.9); Platelet Count 221 K/mcL (140-400); Red Blood Count 5.18 M/mcL (4.19-5.50); Segmented Neutrophils % 87.2 %; White Blood Count 12.2 K/mcL (4.3-11.1)
[2020-07-06 09:18] LABS: Platelet Estimate Normal (Normal); Poikilocytosis 1+ (Not Present)
[2020-07-06] MEDS ORDERED: metOLazone 2.5 MG TABLET PO SCH (10:30)
[2020-07-06] MEDS: Furosemide 40 MG TABLET PO SCH (16:08)
[2020-07-06] MEDS: hydrOXYzine pamoate 25 MG CAPSULE PO PRN (18:02)
[2020-07-07] MEDS: Haloperidol Lactate 5 MG/ML VIAL IM PRN (02:04)
[2020-07-07] MEDS: Ipratropium/Albuterol Neb 3 ML IH SCH (04:02)
[2020-07-07] MEDS: ' PO SCH (05:02)
[2020-07-07 06:12] LABS: BUN/Creatinine Ratio 49 (6-26); Blood Urea Nitrogen 54 mg/dL (8-23); Calcium 10.2 mg/dL (8.6-10.3); Carbon Dioxide 33 mEq/L (23-29); Chloride 106 mEq/L (98-107); Glucose 103 mg/dL (70-105); Osmolality,Calculated 317 (280-300); Potassium 4.4 mEq/L (3.5-5.1); Sodium 146 mEq/L (136-145); eGFR For African Americans > 60 (> 60); eGFR For Non-African Americans > 60 (> 60)
[2020-07-07 06:53] VITALS: BP 164/80
[2020-07-07] MEDS: DilTIAZem CD (24hr) 240 MG CAP.ER.24H PO SCH (07:39)
[2020-07-07] MEDS: Apixaban 5 MG TABLET PO SCH (07:39)
[2020-07-07] MEDS: Furosemide 40 MG TABLET PO SCH (07:39)
[2020-07-07] MEDS: Lactulose Oral Soln 20 GM/30 ML UDC PO SCH (07:39)
[2020-07-07] MEDS: Aspirin Enteric Coated 81 MG Tablet PO SCH (07:39)
[2020-07-07] MEDS: Sucralfate 1 GM TABLET PO SCH (07:39)
[2020-07-07] MEDS: Metoprolol XL (24 HR) Succ 50 MG TAB.ER.24H PO SCH (07:39)
== END 2020-07-07 10:52 | DRG 291 ==
LOC: 2ANU → SUATTDRO 10:47 → 2NENU 13:37 → 2ANU 06-30 18:14
PROVIDERS: ADMIT Student in an Organized Health Care Education/Training Program; ATTEND Internal Medicine

== ENCOUNTER 2021-10-02 09:06 | Inpatient (IN) ==
[2021-10-02] MEDS ORDERED: Ondansetron ODT 4 MG TAB.RAPDIS SL PRN (12:31)
[2021-10-02] MEDS ORDERED: Naloxone 0.4 MG/ML INJ IVP PRN (12:31)
[2021-10-02] MEDS ORDERED: Acetaminophen 325 MG TABLET PO PRN (12:31)
[2021-10-02] MEDS ORDERED: 0.9 % Sodium Chloride 1,000 ML IVC SCH (12:45)
[2021-10-02 13:09] LABS: Basophils % 0.1 %; Hemoglobin 6.7 g/dL (12.9-16.9); Immature Granulocytes % 1.4 % (0-4); Lymphocytes # 1.1 K/mcL (0.6-4.6); Lymphocytes % 7.9 %; Mean Corpuscular HGB Conc 29.1 g/dL (31.6-35.5); Mean Corpuscular Hemoglobin 19.8 pg (28.0-33.3); Mean Platelet Volume 9.2 fL (9.4-12.4); Monocytes % 7.1 %; Platelet Count 538 K/mcL (140-400); Red Blood Count 3.38 M/mcL (4.19-5.50); Red Cell Distribution Width 16.3 % (11.5-14.5); Segmented Neutrophils % 83.5 %; White Blood Count 13.7 K/mcL (4.3-11.1)
[2021-10-02 13:11] LABS: Neutrophils # 11.4 K/mcL (1.6-8.9)
[2021-10-02 13:45] LABS: Acetaminophen < 10 mcg/mL (10-20); BUN/Creatinine Ratio 29 (6-26); Blood Urea Nitrogen 104 mg/dL (8-23); Calcium 9.4 mg/dL (8.6-10.3); Carbon Dioxide 23 mEq/L (23-29); Chloride 92 mEq/L (98-107); Creatine Kinase 113 Units/L (30-223); Glucose 115 mg/dL (70-105); Osmolality,Calculated 304 (280-300); Potassium 3.5 mEq/L (3.5-5.1); Salicylate < 2.5 mg/dL (15.0-30.0); Sodium 130 mEq/L (136-145); eGFR For African Americans 20 (> 60); eGFR For Non-African Americans 17 (> 60)
[2021-10-02 14:20] LABS: Anisocytosis 2+ (Not Present); Hypochromasia Present (Not Present); Platelet Estimate Increased (Normal)
[2021-10-02 14:21] LABS: Microcytosis Present (Not Present); Poikilocytosis 2+ (Not Present)
[2021-10-02 14:41] LABS: Bilirubin,Urine Negative (Negative); Blood,Urine Negative (Negative); Clarity,Urine Clear (Clear); Color,Urine Light-Yellow (Yellow); Glucose,Urine (UA) Normal (Normal); Hyaline Casts,Urine Many per lpf (None Seen); Ketones,Urine Negative (Negative); Leukocyte Esterase,Urine Trace (Negative); Mucus,Urine Few per lpf (None-Few); Nitrite,Urine Negative (Negative); PH,Urine 5.5 pH Units (5.0-8.0); Protein,Urine Trace mg/dL (Neg-Trace); RBC,Urine 0-3 per hpf (0-3); Renal Epithelial Cells,Urine Few per hpf (None-Few); Specific Gravity,Urine 1.018 (1.010-1.025); Squamous Epithelial Cell,Urine Few per hpf (None-Few); Transitional Epi Cells,Urine Few per hpf (None-Few); Urobilinogen,Urine Normal (Normal)
[2021-10-02 14:43] LABS: Potassium,Urine 26.2 mEq/L; Protein/Creatinine Ratio,Urine 0.14 mg/mg (0.00-0.20); Sodium, Urine 28.7 mEq/L
[2021-10-02 14:44] LABS: Amphetamine Screen,Urine Negative ng/mL (Cutoff=1000); Barbiturate Screen,Urine Negative ng/mL (Cutoff=200); Benzodiazepines Screen,Urine Negative ng/mL (Cutoff=200); Cannabinoid Screen,Urine Negative ng/mL (Cutoff = 50); Cocaine Screen,Urine Negative ng/mL (Cutoff= 300); Opiate Screen,Urine Negative ng/mL (Cutoff=300); Phencyclidine Screen,Urine Negative ng/mL (Cutoff=25)
[2021-10-02] MEDS ORDERED: Isovue-370 500 ML BOTTLE IVP ONE (16:56)
[2021-10-02 17:30] LABS: Hemoglobin 6.1 g/dL (12.9-16.9); Mean Corpuscular Hemoglobin 19.7 pg (28.0-33.3); Mean Platelet Volume 8.9 fL (9.4-12.4); Platelet Count 502 K/mcL (140-400); Red Blood Count 3.09 M/mcL (4.19-5.50); Red Cell Distribution Width 16.3 % (11.5-14.5); White Blood Count 15.3 K/mcL (4.3-11.1)
[2021-10-02] MEDS ORDERED: Ipratropium 1 PUFF INHALER IH PRN (17:51)
[2021-10-02] MEDS ORDERED: Levalbuterol 1 PUFF INHALER IH PRN (17:51)
[2021-10-02] MEDS ORDERED: Nitroglycerin 0.4 MG TAB.SUBL SL PRN (17:51)
[2021-10-02] MEDS ORDERED: *HR* LORazepam 2 MG/ML VIAL IVP ONE (18:19)
[2021-10-02] MEDS: 0.9 % Sodium Chloride 1,000 ML IVC SCH (18:31)
[2021-10-02 18:48] LABS: ABG Base Excess 1 mEq/L (-2 to 3); ABG HCO3 21 mEq/L (21-27); ABG Oxygen Saturation 99 % (95-98); ABG PCO2 17 mmHg (35-45); ABG PO2 98 mmHg (85-104); ABG TCO2 21 mEq/L (20-26)
[2021-10-02] MEDS: Melatonin 3 MG TABLET PO SCH (20:07)
[2021-10-02] MEDS: Metoprolol XL (24 HR) Succ 50 MG TAB.ER.24H PO SCH (20:07)
[2021-10-02] MEDS: Lactulose Oral Soln 20 GM/30 ML UDC PO SCH (20:07)
[2021-10-03 00:53] LABS: Basophils % 0.1 %; Eosinophils % 0.1 %; Hematocrit 24.5 % (37.5-50.1); Hemoglobin 7.3 g/dL (12.9-16.9); Lymphocytes # 0.9 K/mcL (0.6-4.6); Lymphocytes % 6.1 %; Mean Corpuscular HGB Conc 29.8 g/dL (31.6-35.5); Mean Corpuscular Hemoglobin 21.7 pg (28.0-33.3); Mean Corpuscular Volume 72.7 fL (83.0-100.0); Mean Platelet Volume 9.2 fL (9.4-12.4); Monocytes # 1.2 K/mcL (0.0-1.3); Neutrophils # 12.4 K/mcL (1.6-8.9); Platelet Count 455 K/mcL (140-400); Red Blood Count 3.37 M/mcL (4.19-5.50); Red Cell Distribution Width 19.1 % (11.5-14.5); Segmented Neutrophils % 84.7 %; White Blood Count 14.6 K/mcL (4.3-11.1)
[2021-10-03 01:06] LABS: Estimated Average Glucose 131 mg/dl; Hemoglobin A1C 6.2 %
[2021-10-03 05:18] LABS: Albumin/Globulin Ratio 1.3 (1.1-2.2); Bilirubin,Direct 0.1 mg/dL (0.0-0.2); Bilirubin,Indirect 0.9 mg/dL (0.0-1.0); Calcium 9.4 mg/dL (8.6-10.3); Magnesium 2.8 mg/dL (1.6-2.6); Potassium 3.6 mEq/L (3.5-5.1)
[2021-10-03 05:19] LABS: INR 1.9; Prothrombin Time 21.5 Seconds (9.4-12.1)
[2021-10-03] MEDS: Azithromycin 250 MG TABLET PO SCH (08:24)
[2021-10-03] MEDS: Lactulose Oral Soln 20 GM/30 ML UDC PO SCH ×2 (08:24→19:45)
[2021-10-03] MEDS: cefTRIAXone 1,000 MG in 0.9 % Sodium Chloride 10 ML IVP SCH (08:24)
[2021-10-03] MEDS: Metoprolol XL (24 HR) Succ 50 MG TAB.ER.24H PO SCH (08:24)
[2021-10-03] MEDS: DilTIAZem CD (24hr) 240 MG CAP.ER.24H PO SCH (08:24)
[2021-10-03 09:23] LABS: ABG Base Excess 0 mEq/L (-2 to 3); ABG HCO3 24 mEq/L (21-27); ABG Oxygen Saturation 47 % (95-98); ABG PCO2 34 mmHg (35-45); ABG PH 7.46 pH Units (7.32-7.45); ABG PO2 24 mmHg (85-104); ABG TCO2 25 mEq/L (20-26)
[2021-10-03 09:37] LABS: ABG Base Excess 3 mEq/L (-2 to 3); ABG HCO3 26 mEq/L (21-27); ABG Oxygen Saturation 96 % (95-98); ABG PCO2 33 mmHg (35-45); ABG PO2 74 mmHg (85-104); ABG TCO2 27 mEq/L (20-26)
[2021-10-03] MEDS ORDERED: 0.9 % Sodium Chloride 250 ML ONE (10:31)
[2021-10-03] MEDS: Pantoprazole 40 MG VIAL IVP SCH ×2 (10:41→19:44)
[2021-10-03 15:36] LABS: Hematocrit 27.9 % (37.5-50.1); Hemoglobin 8.2 g/dL (12.9-16.9); Mean Corpuscular HGB Conc 29.4 g/dL (31.6-35.5); Mean Corpuscular Hemoglobin 21.7 pg (28.0-33.3); Mean Corpuscular Volume 73.8 fL (83.0-100.0); Mean Platelet Volume 8.9 fL (9.4-12.4); Platelet Count 436 K/mcL (140-400); Red Blood Count 3.78 M/mcL (4.19-5.50); Red Cell Distribution Width 18.3 % (11.5-14.5); White Blood Count 13.3 K/mcL (4.3-11.1)
[2021-10-03] MEDS ORDERED: SODIUM CHLORIDE/NAHCO3/KCL/PEG 4,000 ML SOLN.RECON PO ONE (17:00)
[2021-10-03] MEDS ORDERED: Pantoprazole 40 MG VIAL IVP SCH (18:00)
[2021-10-03] MEDS: Melatonin 3 MG TABLET PO SCH (19:45)
[2021-10-03] MEDS: 0.9 % Sodium Chloride 1,000 ML IVC SCH (20:55)
[2021-10-04] MEDS: Metoprolol XL (24 HR) Succ 50 MG TAB.ER.24H PO SCH ×3 (00:59→20:52)
[2021-10-04] MEDS: Pantoprazole 40 MG VIAL IVP SCH ×2 (06:01→17:05)
[2021-10-04] MEDS: DilTIAZem CD (24hr) 240 MG CAP.ER.24H PO SCH (09:34)
[2021-10-04] MEDS: cefTRIAXone 1,000 MG in 0.9 % Sodium Chloride 10 ML IVP SCH (09:34)
[2021-10-04] MEDS: Azithromycin 250 MG TABLET PO SCH (09:34)
[2021-10-04] MEDS: Lactulose Oral Soln 20 GM/30 ML UDC PO SCH ×2 (09:35→20:51)
[2021-10-04] MEDS ORDERED: *HR* Propofol 200 MG/20 ML VIAL IVP ONE ×2 (13:19→13:40)
[2021-10-04] MEDS ORDERED: Lidocaine -MPF 2% 5 ML VIAL ONE (13:19)
[2021-10-04 14:24] LABS: Basophils % 0.1 %; Red Blood Count 3.49 M/mcL (4.19-5.50)
[2021-10-04 14:26] LABS: Eosinophils # 0.1 K/mcL (0.0-0.6); Eosinophils % 0.4 %; Hematocrit 26.4 % (37.5-50.1); Hemoglobin 7.6 g/dL (12.9-16.9); Immature Granulocytes % 1.2 % (0-4); Lymphocytes # 1.3 K/mcL (0.6-4.6); Lymphocytes % 9.2 %; Mean Corpuscular HGB Conc 28.8 g/dL (31.6-35.5); Mean Corpuscular Hemoglobin 21.8 pg (28.0-33.3); Mean Corpuscular Volume 75.6 fL (83.0-100.0); Mean Platelet Volume 8.6 fL (9.4-12.4); Monocytes # 1.1 K/mcL (0.0-1.3); Monocytes % 7.7 %; Neutrophils # 11.6 K/mcL (1.6-8.9); Nucleated Red Blood Cells 0.2 /100 WBC (0); Platelet Count 374 K/mcL (140-400); Red Cell Distribution Width 18.9 % (11.5-14.5); Segmented Neutrophils % 81.4 %; White Blood Count 14.3 K/mcL (4.3-11.1)
[2021-10-04 14:47] LABS: Albumin 3.9 g/dL (3.5-5.7); Albumin/Globulin Ratio 1.5 (1.1-2.2); Bilirubin,Total 0.5 mg/dL (0.3-1.0); Calcium 9.4 mg/dL (8.6-10.3); Globulin 2.6 g/dL (2.4-3.5); Magnesium 2.7 mg/dL (1.6-2.6); Phosphorous 2.8 mg/dL (2.7-4.5); Potassium 3.7 mEq/L (3.5-5.1); Total Protein 6.5 g/dL (6.4-8.9)
[2021-10-04 14:52] LABS: Hypochromasia Present (Not Present)
[2021-10-04] MEDS: Ringers Solution, Lactated 1,000 ML IVC SCH (15:32)
[2021-10-05] MEDS: Melatonin 3 MG TABLET PO PRN (01:09)
[2021-10-05] MEDS: 0.9 % Sodium Chloride 1,000 ML IVC SCH ×2 (03:40→09:06)
[2021-10-05 03:59] LABS: BUN/Creatinine Ratio 24 (6-26); Blood Urea Nitrogen 32 mg/dL (8-23); Carbon Dioxide 23 mEq/L (23-29); Chloride 109 mEq/L (98-107); Glucose 121 mg/dL (70-105); Osmolality,Calculated 298 (280-300); Potassium 3.4 mEq/L (3.5-5.1); Sodium 140 mEq/L (136-145); eGFR For African Americans > 60 (> 60); eGFR For Non-African Americans 52 (> 60)
[2021-10-05 04:02] LABS: Hemoglobin 7.2 g/dL (12.9-16.9); Immature Granulocytes % 0.9 % (0-4); Lymphocytes % 5.9 %; Mean Corpuscular Volume 75.4 fL (83.0-100.0); Red Cell Distribution Width 19.3 % (11.5-14.5)
[2021-10-05 04:04] LABS: Basophils % 0.2 %; Eosinophils # 0.1 K/mcL (0.0-0.6); Eosinophils % 0.4 %; Hematocrit 25.1 % (37.5-50.1); Lymphocytes # 1.1 K/mcL (0.6-4.6); Mean Corpuscular HGB Conc 28.7 g/dL (31.6-35.5); Mean Corpuscular Hemoglobin 21.6 pg (28.0-33.3); Monocytes # 1.1 K/mcL (0.0-1.3); Monocytes % 5.5 %; Neutrophils # 16.7 K/mcL (1.6-8.9); Platelet Count 338 K/mcL (140-400); Red Blood Count 3.33 M/mcL (4.19-5.50); Segmented Neutrophils % 87.1 %; White Blood Count 19.2 K/mcL (4.3-11.1)
[2021-10-05] MEDS: Pantoprazole 40 MG VIAL IVP SCH ×2 (04:56→16:15)
[2021-10-05 05:48] LABS: Anisocytosis 1+ (Not Present); Hypochromasia Present (Not Present)
[2021-10-05 05:49] LABS: Platelet Estimate Normal (Normal)
[2021-10-05] MEDS: Ringers Solution, Lactated 1,000 ML IVC SCH (09:06)
[2021-10-05] MEDS: Lactulose Oral Soln 20 GM/30 ML UDC PO SCH ×2 (09:06→20:12)
[2021-10-05] MEDS: DilTIAZem CD (24hr) 240 MG CAP.ER.24H PO SCH (09:06)
[2021-10-05] MEDS: Azithromycin 250 MG TABLET PO SCH (09:06)
[2021-10-05] MEDS: Metoprolol XL (24 HR) Succ 50 MG TAB.ER.24H PO SCH ×2 (09:07→20:10)
[2021-10-05] MEDS: cefTRIAXone 1,000 MG in 0.9 % Sodium Chloride 10 ML IVP SCH (09:07)
[2021-10-05 09:31] LABS: Hematocrit 25.2 % (37.5-50.1); Hemoglobin 7.1 g/dL (12.9-16.9)
[2021-10-05 09:50] LABS: % Iron Saturation 2 % (20-55); Iron 12 mcg/dL (65-175); Transferrin 382 mg/dL (203-362)
[2021-10-05] MEDS: Apixaban 5 MG TABLET PO SCH ×2 (10:27→20:10)
[2021-10-05] MEDS: Iron Sucrose Complex 250 MG in 0.9 % Sodium Chloride 250 ML IVPB SCH (12:07)
[2021-10-06 02:41] LABS: Red Cell Distribution Width 20.2 % (11.5-14.5)
[2021-10-06 02:43] LABS: Hematocrit 24.8 % (37.5-50.1); Mean Corpuscular HGB Conc 28.2 g/dL (31.6-35.5); Mean Corpuscular Hemoglobin 21.8 pg (28.0-33.3); Mean Corpuscular Volume 77.3 fL (83.0-100.0); Mean Platelet Volume 9.2 fL (9.4-12.4); Platelet Count 310 K/mcL (140-400); Red Blood Count 3.21 M/mcL (4.19-5.50); White Blood Count 11.3 K/mcL (4.3-11.1)
[2021-10-06 03:02] LABS: BUN/Creatinine Ratio 17 (6-26); Blood Urea Nitrogen 20 mg/dL (8-23); Calcium 8.8 mg/dL (8.6-10.3); Carbon Dioxide 22 mEq/L (23-29); Chloride 109 mEq/L (98-107); Glucose 97 mg/dL (70-105); Osmolality,Calculated 295 (280-300); Potassium 3.2 mEq/L (3.5-5.1); Sodium 141 mEq/L (136-145); eGFR For African Americans > 60 (> 60); eGFR For Non-African Americans > 60 (> 60)
[2021-10-06] MEDS: Pantoprazole 40 MG VIAL IVP SCH (06:22)
[2021-10-06 08:40] LABS: Hemoglobin 6.9 g/dL (12.9-16.9)
[2021-10-06 08:41] LABS: Hematocrit 24.3 % (37.5-50.1)
[2021-10-06] MEDS ORDERED: 0.9 % Sodium Chloride 250 ML IVC SCH (09:00)
[2021-10-06] MEDS: cefTRIAXone 1,000 MG in 0.9 % Sodium Chloride 10 ML IVP SCH (11:15)
[2021-10-06] MEDS: Azithromycin 250 MG TABLET PO SCH (11:15)
[2021-10-06] MEDS: DilTIAZem CD (24hr) 240 MG CAP.ER.24H PO SCH (11:15)
[2021-10-06] MEDS: Lactulose Oral Soln 20 GM/30 ML UDC PO SCH ×2 (11:19→20:46)
[2021-10-06] MEDS: Metoprolol XL (24 HR) Succ 50 MG TAB.ER.24H PO SCH ×2 (11:19→20:46)
[2021-10-06] MEDS: Iron Sucrose Complex 250 MG in 0.9 % Sodium Chloride 250 ML IVPB SCH (11:30)
[2021-10-06 13:24] LABS: Hematocrit 25.4 % (37.5-50.1); Hemoglobin 7.2 g/dL (12.9-16.9)
[2021-10-06 19:40] LABS: Hematocrit 30.4 % (37.5-50.1); Hemoglobin 8.2 g/dL (12.9-16.9)
[2021-10-06] MEDS: Melatonin 3 MG TABLET PO PRN (20:46)
[2021-10-07 08:17] LABS: Mean Corpuscular HGB Conc 28.9 g/dL (31.6-35.5); Mean Corpuscular Hemoglobin 22.5 pg (28.0-33.3); Mean Corpuscular Volume 77.8 fL (83.0-100.0)
[2021-10-07 08:18] LABS: Hematocrit 26.6 % (37.5-50.1); Hemoglobin 7.7 g/dL (12.9-16.9); Mean Platelet Volume 8.6 fL (9.4-12.4); Platelet Count 245 K/mcL (140-400); Red Blood Count 3.42 M/mcL (4.19-5.50); Red Cell Distribution Width 21.2 % (11.5-14.5); White Blood Count 10.3 K/mcL (4.3-11.1)
[2021-10-07 08:38] LABS: BUN/Creatinine Ratio 13 (6-26); Blood Urea Nitrogen 14 mg/dL (8-23); Calcium 8.8 mg/dL (8.6-10.3); Carbon Dioxide 21 mEq/L (23-29); Chloride 109 mEq/L (98-107); Glucose 119 mg/dL (70-105); Osmolality,Calculated 288 (280-300); Potassium 3.2 mEq/L (3.5-5.1); Sodium 138 mEq/L (136-145); eGFR For African Americans > 60 (> 60); eGFR For Non-African Americans > 60 (> 60)
[2021-10-07] MEDS: DilTIAZem CD (24hr) 240 MG CAP.ER.24H PO SCH (09:57)
[2021-10-07] MEDS: cefTRIAXone 1,000 MG in 0.9 % Sodium Chloride 10 ML IVP SCH (09:57)
[2021-10-07] MEDS: Iron Sucrose Complex 250 MG in 0.9 % Sodium Chloride 250 ML IVPB SCH (09:57)
[2021-10-07] MEDS: Azithromycin 250 MG TABLET PO SCH (09:57)
[2021-10-07] MEDS: Lactulose Oral Soln 20 GM/30 ML UDC PO SCH (09:57)
[2021-10-07] MEDS: Metoprolol XL (24 HR) Succ 50 MG TAB.ER.24H PO SCH (09:57)
[2021-10-07 10:32] VITALS: BP 113/61; PULSE 84; TEMP 98; O2SAT 97
== END 2021-10-07 13:02 | DRG 871 ==
LOC: 2ANU → SUATTDRO 12:06
PROVIDERS: ADMIT Internal Medicine; ATTEND Family Medicine